=== PATIENT | female | born 1980 | race Caucasian/White ===

== ENCOUNTER 2017-07-23 09:49 | Emergency (ER) | payer MEDICAID ==
[~2017-07-23] VITALS: Ht 152.4 cm; Wt 78.9 kg
[2017-07-23 10:37] LABS: PLATELET COUNT 257 x10^3mcL (130-400)
[2017-07-23 10:42] LABS: BASOPHIL % 2.2 % (0-2)
[2017-07-23 10:50] LABS: CALCIUM 8.5 mg/dL (8.5-10.1); CARBON DIOXIDE 24.9 mmol/L (21-32); CHLORIDE SERUM 107 mmol/L (98-107); CREATININE SERUM 0.6 mg/dL (0.6-1.0); GFR1 > 60 mL/min; GLUCOSE SERUM 98 mg/dL (74-106); POTASSIUM SERUM 3.5 mmol/L (3.5-5.1); SODIUM SERUM 137 mmol/L (136-145)
[2017-07-23 10:54] LABS: ALBUMIN 3.5 g/dL (3.4-5.0); ALKALINE PHOSPHATASE 72 U/L (46-116); ALT/SGPT 34 U/L (14-59); AMYLASE 51 U/L (25-115); AST/SGOT 19 U/L (15-37); BILIRUBIN TOTAL 0.3 mg/dL (0.20-1.00); LIPASE 248 IU/L (73-393); TOTAL PROTEIN, SERUM 7.4 g/dL (6.4-8.2)
[2017-07-23 11:09] LABS: UA SPECIFIC GRAVITY >=1.030 (1.005-1.035); microscopic required? YES
[2017-07-23 11:10] LABS: urine erythrocyte 3+ (NEGATIVE)
[2017-07-23 11:17] LABS: AMPHETAMINE QUAL UR NONE DETECTED (NEG <=1000)
[2017-07-23 14:26] VITALS: BP 146/63
== END 2017-07-23 14:27 | disposition home or self-care (01) ==
LOC: ED 09:49
PROVIDERS: Emergency Medicine
DX: N94.6 Dysmenorrhea, unspecified (principal); N39.0 Urinary tract infection, site not specified
CPT/HCPCS: J1885; J2405; J7030

== ENCOUNTER 2017-07-23 18:42 | Emergency (ER) | payer MEDICAID ==
[~2017-07-23] VITALS: Ht 152.4 cm; Wt 79.4 kg
[2017-07-23 18:47] VITALS: BP 128/85
== END 2017-07-23 19:08 | disposition left against medical advice (07) ==
LOC: ED 18:42
DX: Z53.21 Procedure and treatment not carried out due to patient leaving prior to being seen by health care provider (principal)

== ENCOUNTER 2017-07-24 09:30 | Emergency (ER) | payer MEDICAID ==
[~2017-07-24] VITALS: Ht 152.4 cm; Wt 79.6 kg
[2017-07-24 11:11] LABS: BASOPHIL % 0.6 % (0-2); PLATELET COUNT 258 x10^3mcL (130-400); RED CELL DISTRIBUTION WIDTH 14.2 % (11.5-14.5)
[2017-07-24 11:12] LABS: UA SPECIFIC GRAVITY 1.025 (1.005-1.035); microscopic required? YES
[2017-07-24 11:13] LABS: urine erythrocyte 3+ (NEGATIVE)
[2017-07-24 11:21] LABS: CALCIUM 8.1 mg/dL (8.5-10.1); CARBON DIOXIDE 29.7 mmol/L (21-32); CHLORIDE SERUM 103 mmol/L (98-107); CREATININE SERUM 0.6 mg/dL (0.6-1.0); GFR1 > 60 mL/min; GLUCOSE SERUM 117 mg/dL (74-106); POTASSIUM SERUM 3.3 mmol/L (3.5-5.1); SODIUM SERUM 138 mmol/L (136-145)
[2017-07-24 11:25] LABS: ALKALINE PHOSPHATASE 68 U/L (46-116); ALT/SGPT 34 U/L (14-59); AST/SGOT 20 U/L (15-37); BILIRUBIN TOTAL 0.3 mg/dL (0.20-1.00); LIPASE 304 IU/L (73-393); TOTAL PROTEIN, SERUM 6.8 g/dL (6.4-8.2)
[2017-07-24 11:26] LABS: ALBUMIN 3.1 g/dL (3.4-5.0)
[2017-07-24 12:17] VITALS: BP 120/60
== END 2017-07-24 12:17 | disposition home or self-care (01) ==
LOC: ED 09:30
PROVIDERS: Emergency Medicine
DX: R10.32 Left lower quadrant pain (principal)
CPT/HCPCS: 83880; J1885; Q9967

== ENCOUNTER 2018-11-27 03:30 | Emergency (ER) | payer SELFPAY ==
[~2018-11-27] VITALS: Ht 152.4 cm; Wt 82.6 kg
[2018-11-27 03:34] VITALS: Ht 152.4 cm; Wt 82.6 kg
[2018-11-27 04:21] VITALS: BP 142/83
== END 2018-11-27 04:21 | disposition home or self-care (01) ==
LOC: ED 03:30
DX: J06.9 Acute upper respiratory infection, unspecified (principal); F41.9 Anxiety disorder, unspecified; F32.9 Major depressive disorder, single episode, unspecified
CPT/HCPCS: Q0092

== ENCOUNTER 2019-08-31 15:44 | Emergency (ER) | payer SELFPAY ==
[~2019-08-31] VITALS: Ht 152.4 cm; Wt 88.5 kg
[2019-08-31 16:11] VITALS: Ht 152.4 cm; Wt 88.5 kg
[2019-08-31 17:07] LABS: UA SPECIFIC GRAVITY >=1.030 (1.005-1.035); microscopic required? YES; urine erythrocyte TRACE (NEGATIVE)
[2019-08-31 17:19] VITALS: BP 126/87
== END 2019-08-31 17:19 | disposition home or self-care (01) ==
LOC: ED 15:44
PROVIDERS: Emergency Medicine
DX: N39.0 Urinary tract infection, site not specified (principal); F41.9 Anxiety disorder, unspecified; F32.9 Major depressive disorder, single episode, unspecified